=== PATIENT | male | born 1980 | race Two or more races ===

== ENCOUNTER 2021-07-29 11:19 | Emergency (ER) | payer SELFPAY ==
[~2021-07-29] VITALS: Ht 147.3 cm; Wt 83.5 kg
[2021-07-29 11:37] VITALS: BP 123/75
--- NOTE | 2021-07-29 11:41 | NUR ---
PT TO LOBBY.
[2021-07-29] MEDS ORDERED: ERYT5OIN51 OP (11:57)
[2021-07-29] MEDS ORDERED: TETRACAINE HCL/PF 0.5% OPTH 4 ML BTL OP ONE (12:35)
[2021-07-29] MEDS ORDERED: FLUORESCEIN OPTH STRIP 1 MG OP ONE (12:35)
[2021-07-29] MEDS ORDERED: FLUORESCEIN OPTH STRIP 1 MG ONE (12:59)
[2021-07-29] MEDS ORDERED: CILOS OP (13:10)
[2021-07-29] MEDS ORDERED: IBUP-2213 PO (13:10)
[2021-07-29 13:40] VITALS: BP 120/77
--- NOTE | 2021-07-29 13:40 | NUR ---
NO NURSING INTERVENTIONS DONE, NO INTERVENTIONS NEEDED.
--- NOTE | 2021-07-29 13:42 | NUR ---
Patient discharged with v/s stable. Written and verbal after care instructions given FOR CORNEAL ABRASION and explained. Patient alert, oriented and verbalized understanding of instructions. Ambulatory with steady gait. All questions addressed prior to discharge. ID band removed. Patient advised to follow up with PMD. Rx of CIPROFLOXACIN AND IBUPROFEN given. Patient educated on indication of medication including possible reaction and side effects. Opportunity to ask questions provided and answered.
== END 2021-07-29 13:42 | disposition home or self-care (01) ==
LOC: MED 11:19
DX: H10.9 Unspecified conjunctivitis (principal); M79.652 Pain in left thigh
CPT/HCPCS: 99283